=== PATIENT | male | born 1960 | race Caucasian/White ===

== ENCOUNTER → 2016-10-31 | Outpatient (CLI) | payer BC, OTHER ==
[2016-10-31 09:50] LABS: HEMATOCRIT 42.8 % (37.9-51.0); HEMOGLOBIN 14.6 g/dL (13.5-17.0); MEAN CORPUSCULAR HGB CONC 34.1 g/dL (32.0-36.0); MEAN CORPUSCULAR VOLUME 88 fl (80-97); RED BLOOD COUNT 4.87 10^6/uL (4.35-5.55); RED CELL DISTRIBUTION WIDTH 13.2 % (11.5-14.0); WHITE BLOOD COUNT 5.5 10^3/uL (4.0-10.5)
[2016-10-31 10:19] LABS: ALANINE AMINOTRANSFERASE 35 U/L (21-72); ALBUMIN 4.2 g/dL (3.5-5.0); ALKALINE PHOSPHATASE 96 U/L (38-126); ANION GAP 9 (5-19); ASPARTATE AMINO TRANSFERASE 23 U/L (17-59); BILIRUBIN,DIRECT 0.4 mg/dL (0.0-0.4); BILIRUBIN,TOTAL 0.8 mg/dL (0.2-1.3); BLOOD UREA NITROGEN 17 mg/dL (7-20); CALCIUM 9.5 mg/dL (8.4-10.2); CARBON DIOXIDE 28 mmol/L (22-30); CHLORIDE 103 mmol/L (98-107); CHOLESTEROL 220.82 mg/dL (0-200); CREATININE RESULT 1.05 mg/dL (0.52-1.25); Direct HDL 41 mg/dL (>40); GLUCOSE 104 mg/dL (75-110); POTASSIUM 4.6 mmol/L (3.6-5.0); SODIUM 140.4 mmol/L (137-145); TOTAL PROTEIN 7.3 g/dL (6.3-8.2); TRIGLYCERIDES 197 mg/dL (<150)
[2016-10-31 10:25] LABS: VLDL CHOLESTEROL 39.4 mg/dL (10-31)
[2016-10-31 10:30] LABS: DIRECT LDL 151 mg/dL (<100)
[2016-10-31 10:48] LABS: THYROID STIMULATING HORMONE 0.77 uIU/mL (0.47-4.68)
== END ==
LOC: OD 08:19
PROVIDERS: ATTEND Internal Medicine Cardiovascular Disease
DX: I49.9 Cardiac arrhythmia, unspecified (principal); R73.09 Other abnormal glucose; E78.4 Other hyperlipidemia; Z79.899 Other long term (current) drug therapy
CPT/HCPCS: 36415; 80048; 80061; 80076; 82977; 83036; 83735; 84439; 84443; 85027

== ENCOUNTER → 2016-12-14 | Outpatient (CLI) | payer OTHER ==
[2016-12-14 09:06] LABS: ALANINE AMINOTRANSFERASE 41 U/L (21-72); ALBUMIN 4.2 g/dL (3.5-5.0); ALKALINE PHOSPHATASE 99 U/L (38-126); ASPARTATE AMINO TRANSFERASE 29 U/L (17-59); BILIRUBIN,DIRECT 0.4 mg/dL (0.0-0.4); CHOLESTEROL 167.87 mg/dL (0-200); Direct HDL 41 mg/dL (>40); TOTAL PROTEIN 7.1 g/dL (6.3-8.2); TRIGLYCERIDES 126 mg/dL (<150)
[2016-12-14 09:17] LABS: DIRECT LDL 108 mg/dL (<100)
== END ==
LOC: OD 07:49
PROVIDERS: ATTEND Internal Medicine Cardiovascular Disease
DX: E78.00 Pure hypercholesterolemia, unspecified (principal); Z79.899 Other long term (current) drug therapy
CPT/HCPCS: 36415; 80061; 80076; 83735

== ENCOUNTER → 2017-01-22 | Outpatient (CLI) | payer OTHER ==
[2017-01-22 08:39] LABS: CHOLESTEROL 142.28 mg/dL (0-200); Direct HDL 42 mg/dL (>40); TRIGLYCERIDES 105 mg/dL (<150)
[2017-01-22 08:50] LABS: DIRECT LDL 81 mg/dL (<100)
== END ==
LOC: OD 07:43
PROVIDERS: ATTEND Internal Medicine Cardiovascular Disease
DX: E78.00 Pure hypercholesterolemia, unspecified (principal)
CPT/HCPCS: 36415; 80061

== ENCOUNTER → 2017-05-14 | Outpatient (CLI) | payer OTHER ==
[2017-05-14 08:37] LABS: ANION GAP 10 (5-19); BLOOD UREA NITROGEN 16 mg/dL (7-20); CALCIUM 9.2 mg/dL (8.4-10.2); CARBON DIOXIDE 27 mmol/L (22-30); CHLORIDE 104 mmol/L (98-107); CHOLESTEROL 150.34 mg/dL (0-200); GLUCOSE 105 mg/dL (75-110); POTASSIUM 4.5 mmol/L (3.6-5.0); SODIUM 141.3 mmol/L (137-145); TRIGLYCERIDES 154 mg/dL (<150)
[2017-05-14 08:48] LABS: DIRECT LDL 90 mg/dL (<100)
[2017-05-14 08:51] LABS: VLDL CHOLESTEROL 30.8 mg/dL (10-31)
== END ==
LOC: OD 07:55
PROVIDERS: ATTEND Internal Medicine Cardiovascular Disease
DX: E78.00 Pure hypercholesterolemia, unspecified (principal); I49.9 Cardiac arrhythmia, unspecified
CPT/HCPCS: 36415; 80048; 80061; 83735

== ENCOUNTER → 2017-07-11 | Outpatient (CLI) | payer OTHER ==
[2017-07-11 08:41] LABS: ALANINE AMINOTRANSFERASE 31 U/L (21-72); ALKALINE PHOSPHATASE 90 U/L (38-126); ASPARTATE AMINO TRANSFERASE 31 U/L (17-59); BILIRUBIN,DIRECT 0.2 mg/dL (0.0-0.4); BILIRUBIN,TOTAL 0.7 mg/dL (0.2-1.3); CHOLESTEROL 134.99 mg/dL (0-200); TOTAL PROTEIN 6.2 g/dL (6.3-8.2); TRIGLYCERIDES 108 mg/dL (<150)
[2017-07-11 08:52] LABS: DIRECT LDL 71 mg/dL (<100)
== END ==
LOC: OD 07:33
PROVIDERS: ATTEND Internal Medicine Cardiovascular Disease
DX: E78.2 Mixed hyperlipidemia (principal); I49.9 Cardiac arrhythmia, unspecified; Z79.899 Other long term (current) drug therapy
CPT/HCPCS: 36415; 80061; 80076; 83735

== ENCOUNTER → 2017-12-20 | Outpatient (CLI) | payer OTHER ==
[2017-12-20 08:40] LABS: ALANINE AMINOTRANSFERASE 32 U/L (21-72); ALKALINE PHOSPHATASE 85 U/L (38-126); ASPARTATE AMINO TRANSFERASE 24 U/L (17-59); BILIRUBIN,DIRECT 0.3 mg/dL (0.0-0.4); BILIRUBIN,TOTAL 0.9 mg/dL (0.2-1.3); CHOLESTEROL 132.75 mg/dL (0-200); TOTAL PROTEIN 6.8 g/dL (6.3-8.2); TRIGLYCERIDES 119 mg/dL (<150)
[2017-12-20 08:51] LABS: DIRECT LDL 70 mg/dL (<100)
== END ==
LOC: OD 07:43
PROVIDERS: ATTEND Internal Medicine Cardiovascular Disease
DX: E83.42 Hypomagnesemia (principal); E78.2 Mixed hyperlipidemia; Z79.899 Other long term (current) drug therapy
CPT/HCPCS: 36415; 80061; 80076; 83735

== ENCOUNTER → 2018-03-28 | Outpatient (CLI) | payer OTHER ==
[2018-03-28 09:09] LABS: ALANINE AMINOTRANSFERASE 35 U/L (21-72); ALKALINE PHOSPHATASE 86 U/L (38-126); ASPARTATE AMINO TRANSFERASE 23 U/L (17-59); BILIRUBIN,DIRECT 0.2 mg/dL (0.0-0.4); BILIRUBIN,TOTAL 0.8 mg/dL (0.2-1.3); CHOLESTEROL 130.06 mg/dL (0-200); TOTAL PROTEIN 6.6 g/dL (6.3-8.2); TRIGLYCERIDES 122 mg/dL (<150)
[2018-03-28 09:20] LABS: DIRECT LDL 84 mg/dL (<100)
== END ==
LOC: OD 07:38
PROVIDERS: ATTEND Internal Medicine Cardiovascular Disease
DX: E83.42 Hypomagnesemia (principal); E78.2 Mixed hyperlipidemia; Z79.899 Other long term (current) drug therapy
CPT/HCPCS: 36415; 80061; 80076; 83735

== ENCOUNTER 2018-05-10 07:55 | Emergency (ER) | payer OTHER ==
[2018-05-10] MEDS ORDERED: ASPIRIN 81 MG TABLET, CHEWABLE PO ONE (08:38)
--- NOTE | 2018-05-10 08:41 | EKG REPORT ---
SEVERITY:- ABNORMAL ECG - SINUS RHYTHM VENTRICULAR TRIGEMINY : Confirmed by: Wilma Guerrero MD 10-May-2018 08:40:44
--- NOTE | 2018-05-10 09:42 | RADIOLOGY REPORT (SQ) ---
EXAM DESCRIPTION: CHEST SINGLE VIEW COMPLETED DATE/TIME: 05/10/2018 9:21 am REASON FOR STUDY: sob COMPARISON: None. EXAM PARAMETERS: NUMBER OF VIEWS: One view. TECHNIQUE: Single frontal radiographic view of the chest acquired. RADIATION DOSE: NA LIMITATIONS: None. FINDINGS: LUNGS AND PLEURA: No opacities, masses or pneumothorax. No pleural effusion. MEDIASTINUM AND HILAR STRUCTURES: No masses. Contour normal. HEART AND VASCULAR STRUCTURES: Moderate cardiomegaly BONES: No acute findings. HARDWARE: None in the chest. OTHER: No other significant finding. IMPRESSION: Moderate cardiomegaly. No acute changes TECHNICAL DOCUMENTATION: JOB ID: [id number] [employer]- All Rights Reserved Reading location - IP/workstation name: [email or web address]
[2018-05-10 09:45] LABS: ABSOLUTE LYMPHOCYTES (AUTO) 1.1 10^3/uL (0.5-4.7); ABSOLUTE MONOCYTES (AUTO) 0.3 10^3/uL (0.1-1.4); ABSOLUTE NEUT (AUTO) 6.2 10^3/uL (1.7-8.2); BASOPHILS % (AUTO) 0.1 % (0-2); EOSINOPHILS % (AUTO) 0.1 % (0-6); HEMATOCRIT 43.2 % (37.9-51.0); HEMOGLOBIN 14.6 g/dL (13.5-17.0); LYMPHOCYTES % (AUTO) 14.7 % (13-45); MEAN CORPUSCULAR HEMOGLOBIN 29.4 pg (27.0-33.4); MEAN CORPUSCULAR HGB CONC 33.8 g/dL (32.0-36.0); MEAN CORPUSCULAR VOLUME 87 fl (80-97); MONOCYTES % (AUTO) 4.3 % (3-13); PLATELET COUNT 153 10^3/uL (150-450); RED BLOOD COUNT 4.96 10^6/uL (4.35-5.55); RED CELL DISTRIBUTION WIDTH 13.9 % (11.5-14.0); SEGMENTED NEUTROPHILS % (AUTO) 80.8 % (42-78); TOTAL CELLS COUNTED % (AUTO) 100 %; WHITE BLOOD COUNT 7.7 10^3/uL (4.0-10.5)
[2018-05-10 10:01] LABS: ALANINE AMINOTRANSFERASE 20 U/L (21-72); ALBUMIN 4.3 g/dL (3.5-5.0); ALKALINE PHOSPHATASE 99 U/L (38-126); ANION GAP 8 (5-19); ASPARTATE AMINO TRANSFERASE 27 U/L (17-59); BILIRUBIN,DIRECT 0.3 mg/dL (0.0-0.4); BILIRUBIN,TOTAL 0.9 mg/dL (0.2-1.3); BLOOD UREA NITROGEN 14 mg/dL (7-20); CALCIUM 9.2 mg/dL (8.4-10.2); CARBON DIOXIDE 30 mmol/L (22-30); CHLORIDE 104 mmol/L (98-107); CREATINE KINASE 63 U/L (55-170); GLUCOSE 110 mg/dL (75-110); LIPASE 49.3 U/L (23-300); POTASSIUM 4.1 mmol/L (3.6-5.0); SODIUM 141.7 mmol/L (137-145)
[2018-05-10 10:13] LABS: CREATINE KINASE MB 1.03 ng/mL (<4.55); TROPONIN I < 0.012 ng/mL
[2018-05-10 12:26] VITALS: BP 120/79
--- NOTE | 2018-05-10 12:44 | ER Document Report ---
ED General - General Chief Complaint: Chest Pain Stated Complaint: CHEST PAIN Time Seen by Provider: 05/10/18 08:38 TRAVEL OUTSIDE OF THE [place] IN LAST 30 DAYS: No - HPI Patient complains to provider of: Chest pain Notes: Patient coming in for evaluation of intermittent chest pain patient states substernal right-sided left-sided intermittent ongoing for greater than last 48 hours. Patient denies any exacerbating or relieving factors. Patient upon my evaluation is resting comfortably states he had a stress test years ago but was told may show a defect however no catheterization at that time. Patient did have a catheterization approximately 2014 and his otherwise state was normal. Patient does have a history of PVCs and currently is on metoprolol for the PVCs. Denies any recent travel shortness of breath nausea vomiting fever chills - Related Data Allergies/Adverse Reactions: Penicillins Allergy (Intermediate, Verified 05/10/18 07:55) Generalized rash Past Medical History - Social History Smoking Status: Never Smoker Chew tobacco use (# tins/day): No Frequency of alcohol use: None Drug Abuse: None Family History: Reviewed & Not Pertinent Patient has suicidal ideation: No Patient has homicidal ideation: No - Past Medical History Cardiac Medical History: Reports: Hx Hypercholesterolemia Denies: Hx Coronary Artery Disease, Hx Heart Attack, Hx Hypertension Pulmonary Medical History: Denies: Hx Asthma, Hx Bronchitis, Hx COPD, Hx Pneumonia Neurological Medical History: Denies: Hx Cerebrovascular Accident, Hx Seizures Renal/ Medical History: Denies: Hx Peritoneal Dialysis GI Medical History: Reports: Hx Gastroesophageal Reflux Disease Musculoskeletal Medical History: Denies Hx Arthritis - Immunizations Hx Diphtheria, Pertussis, Tetanus Vaccination: Yes Review of Systems - Review of Systems Constitutional: No symptoms reported EENT: No symptoms reported Cardiovascular: Chest pain Respiratory: No symptoms reported Gastrointestinal: No symptoms reported Genitourinary: No symptoms reported Male Genitourinary: No symptoms reported Musculoskeletal: No symptoms reported Skin: No symptoms reported Hematologic/Lymphatic: No symptoms reported Neurological/Psychological: No symptoms reported -: Yes All other systems reviewed and negative Physical Exam - Vital signs Vitals: Temp Pulse Resp BP Pulse Ox 98.7 F 83 16 145/106 H 95 05/10/18 08:00 05/10/18 08:00 05/10/18 08:00 05/10/18 08:00 05/10/18 08:00 Interpretation: Normal - General General appearance: Appears well, Alert - HEENT Head: Normocephalic, Atraumatic Eyes: Normal Pupils: PERRL - Respiratory Respiratory status: No respiratory distress Chest status: Nontender Breath sounds: Normal Chest palpation: Normal - Cardiovascular Rhythm: Regular Heart sounds: Normal auscultation Murmur: No - Abdominal Inspection: Normal Distension: No distension Bowel sounds: Normal Tenderness: Nontender Organomegaly: No organomegaly - Back Back: Normal, Nontender - Extremities General upper extremity: Normal inspection, Nontender, Normal color, Normal ROM, Normal temperature General lower extremity: Normal inspection, Nontender, Normal color, Normal ROM, Normal temperature, Normal weight bearing. No: Marco's sign - Neurological Neuro grossly intact: Yes Cognition: Normal Orientation: AAOx4 [place] Coma Scale Eye Opening: Spontaneous [place] Coma Scale Verbal: Oriented [place] Coma Scale Motor: Obeys Commands [place] Coma Scale Total: 15 Speech: Normal Motor strength normal: LUE, RUE, LLE, RLE Sensory: Normal - Psychological Associated symptoms: Normal affect, Normal mood - Skin Skin Temperature: Warm Skin Moisture: Dry Skin Color: Normal Course - Re-evaluation Re-evalutation: 05/10/18 15:09 Patient was sent into the ER by his residential life director Dr. Campos. EKG troponin otherwise negative for any acute ischemia. Dr. Campos requesting the patient be discharged home with sublingual nitroglycerin to take whenever he is chest pain and to keep a record of the events surrounding the beginning of the chest pain and what happens after he takes the sublingual nitro. This was relayed to the patient. States understanding otherwise patient will be discharged home follow- up primary care physician. - Vital Signs Vital signs: Temp Pulse Resp BP Pulse Ox 98.7 F 83 19 120/79 96 05/10/18 08:00 05/10/18 08:00 05/10/18 12:01 05/10/18 12:01 05/10/18 12:01 - Laboratory Result Diagrams: 05/10/18 09:00 05/10/18 09:00 Laboratory results interpreted by me: 05/10/18 05/10/18 09:00 09:00 Seg Neutrophils % 80.8 H ALT 20 L Discharge - Discharge Clinical Impression: Atypical chest pain Condition: Good Disposition: HOME, SELF-CARE Instructions: Chest Wall Pain ([facility]), Chest Pain of Unclear Cause ([facility]), Nitrates ([facility]) Additional Instructions: Your EKG laboratory studies not show any signs of a heart attack or heart damage no pneumonia no signs of infection. I discussed your case with your doctor Dr. Campos who requests that he start taking nitro at home for your pain and to keep a record of the events ongoing around you with the chest pain occurs in the results of taking the sublingual nitro. Please make sure you are sitting down when he take the sublingual nitro. Follow-up with his office on Saturday (call them) Return to the ER immediately if there is a change in your symptoms are concerning your symptoms. Prescriptions: Nitroglycerin [Nitrostat 0.4 mg (1/150 Gr) Tabs 25/Bottle] 1 tab SL Q5MP PRN #25 tab.subl PRN Reason:
== END 2018-05-10 13:01 | disposition home or self-care (01) ==
LOC: ER 07:55
DX: R07.89 Other chest pain (principal); E78.00 Pure hypercholesterolemia, unspecified; Z88.0 Allergy status to penicillin
CPT/HCPCS: 36415; 71045; 80053; 82550; 82553; 83690; 83735; 84484; 85025; 93005; 93010; 99285

== ENCOUNTER 2018-05-24 18:05 | Emergency (ER) | payer OTHER ==
--- NOTE | 2018-05-24 18:18 | ER Document Report ---
ED Medical Screen (RME) - General Chief Complaint: Urinary Problem Stated Complaint: URINARY ISSUES Time Seen by Provider: 05/24/18 18:17 Primary Care Provider: ZACH BERNSTEIN MD [Primary Care Provider] - Follow up as needed Mode of Arrival: Ambulatory Information source: Patient TRAVEL OUTSIDE OF THE [place] IN LAST 30 DAYS: No - HPI Patient complains to provider of: dysuria; retention Onset: This morning - pt. with c/o dysuria since earliere today and decreasing ability to make urine - Related Data Allergies/Adverse Reactions: Penicillins Allergy (Intermediate, Verified 05/24/18 18:08) Generalized rash Past Medical History - Past Medical History Cardiac Medical History: Reports: Hx Hypercholesterolemia Denies: Hx Coronary Artery Disease, Hx Heart Attack, Hx Hypertension Pulmonary Medical History: Denies: Hx Asthma, Hx Bronchitis, Hx COPD, Hx Pneumonia Neurological Medical History: Denies: Hx Cerebrovascular Accident, Hx Seizures Renal/ Medical History: Denies: Hx Peritoneal Dialysis GI Medical History: Reports: Hx Gastroesophageal Reflux Disease Musculoskeltal Medical History: Denies Hx Arthritis - Immunizations Hx Diphtheria, Pertussis, Tetanus Vaccination: Yes Physical Exam - Vital signs Vitals: Temp Pulse Resp BP Pulse Ox 99.0 F 41 L 18 152/83 H 99 05/24/18 18:10 05/24/18 18:10 05/24/18 18:10 05/24/18 18:10 05/24/18 18:10 Course - Vital Signs Vital signs: Temp Pulse Resp BP Pulse Ox 99.0 F 41 L 18 152/83 H 99 05/24/18 18:10 05/24/18 18:10 05/24/18 18:10 05/24/18 18:10 05/24/18 18:10 Doctor's Discharge - Discharge Referrals: ZACH BERNSTEIN MD [Primary Care Provider] - Follow up as needed
[2018-05-24 18:49] LABS: APPEARANCE,URINE SLIGHTLY-CLOUDY; BILIRUBIN,URINE NEGATIVE (NEGATIVE); COLOR,URINE YELLOW; GLUCOSE, URINE NEGATIVE (NEGATIVE); KETONES,URINE NEGATIVE (NEGATIVE); LEUKOCYTE ESTERASE,URINE MODERATE (NEGATIVE); NITRITE,URINE NEGATIVE (NEGATIVE); PROTEIN,URINE NEGATIVE (NEGATIVE); URINE SPECIFIC GRAVITY 1.025; UROBILINOGEN,URINE NEGATIVE mg/dL (<2.0)
[2018-05-24] MEDS ORDERED: CEPHALEXIN 500 MG CAPSULE PO ONE (19:57)
--- NOTE | 2018-05-24 19:59 | ER Document Report ---
ED General - General Chief Complaint: Urinary Problem Stated Complaint: URINARY ISSUES Time Seen by Provider: 05/24/18 18:17 Primary Care Provider: ZACH BERNSTEIN MD [Primary Care Provider] - Follow up in 3-5 days Mode of Arrival: Ambulatory Notes: Patient is a 57-year-old male with a past medical history of frequent PVCs, hypertension, presents with 2 days of dysuria, urinary hesitancy and feels like he is unable to completely empty his bladder. He notes a mild, throbbing, constant discomfort to the suprapubic abdomen. Symptoms started gradually, have gotten worse since onset. Nothing seems to improve or worsen his symptoms. Reports a history of similar symptoms in October 2017 when he was in [place]. States he was treated with antibiotics and within 24 hours of initiation of antibiotic treatment he felt much better. He has never seen a urologist regarding today's concerns. Denies fever or constitutional symptoms. TRAVEL OUTSIDE OF THE [place] IN LAST 30 DAYS: No - Related Data Allergies/Adverse Reactions: Penicillins Allergy (Intermediate, Verified 05/24/18 18:08) Generalized rash Past Medical History - General Information source: Patient - Social History Smoking Status: Never Smoker Chew tobacco use (# tins/day): No Frequency of alcohol use: None Drug Abuse: None Lives with: Family Family History: Reviewed & Not Pertinent Patient has suicidal ideation: No Patient has homicidal ideation: No - Past Medical History Cardiac Medical History: Reports: Hx Hypercholesterolemia Denies: Hx Coronary Artery Disease, Hx Heart Attack, Hx Hypertension Pulmonary Medical History: Denies: Hx Asthma, Hx Bronchitis, Hx COPD, Hx Pneumonia Neurological Medical History: Denies: Hx Cerebrovascular Accident, Hx Seizures Renal/ Medical History: Denies: Hx Peritoneal Dialysis GI Medical History: Reports: Hx Gastroesophageal Reflux Disease Musculoskeletal Medical History: Denies Hx Arthritis - Immunizations Hx Diphtheria, Pertussis, Tetanus Vaccination: Yes Review of Systems - Review of Systems Notes: Constitutional: Negative for fever. HENT: Negative for sore throat. Eyes: Negative for visual changes. Cardiovascular: Negative for chest pain. Respiratory: Negative for shortness of breath. Gastrointestinal: Positive for lower abdominal pain Genitourinary: Positive for dysuria, urinary frequency and hesitancy. Musculoskeletal: Negative for back pain. Skin: Negative for rash. Neurological: Negative for headaches, weakness or numbness. 10 point ROS negative except as marked above and in HPI. Physical Exam - Vital signs Vitals: Temp Pulse Resp BP Pulse Ox 99.0 F 41 L 18 152/83 H 99 05/24/18 18:10 05/24/18 18:10 05/24/18 18:10 05/24/18 18:10 05/24/18 18:10 Interpretation: Bradycardic - Patient recently had his metoprolol increased to 100 mg daily Notes: PHYSICAL EXAMINATION: GENERAL: Well-appearing, well-nourished and in no acute distress. HEAD: Atraumatic, normocephalic. EYES: Pupils equal round and reactive to light, extraocular movements intact, sclera anicteric, conjunctiva are normal. ENT: nares patent, oropharynx clear without exudates. Moist mucous membranes. NECK: Normal range of motion, supple without lymphadenopathy LUNGS: Breath sounds clear to auscultation bilaterally and equal. No wheezes rales or rhonchi. HEART: Regular rate and rhythm without murmurs ABDOMEN: Soft, nontender, normoactive bowel sounds. No guarding, no rebound. No masses appreciated. Bedside ultrasound shows nondistended bladder, no evidence of hydronephrosis on either kidney. EXTREMITIES: Normal range of motion, no pitting or edema. No cyanosis. NEUROLOGICAL: No focal neurological deficits. Moves all extremities spontaneously and on command. PSYCH: Normal mood, normal affect. SKIN: Warm, Dry, normal turgor, no rashes or lesions noted. Course - Re-evaluation Re-evalutation: 05/24/18 19:58 Patient presents with symptoms consistent with an acute cystitis versus prostatitis. Vitals wnl. No history of fever, flank pain, or constitution symptoms to suggest ascending infection at this time. Patient is well in appearance, tolerating oral intake without difficulty. No focal abdominal tenderness to suggest acute appendicitis, biliary pathology, acute pancreatitis. Bladder ultrasound does not show any evidence of urinary retention or hydronephrosis on renal ultrasound. Patient will be started on antibiotics at this time. A culture has been sent. I have advised urology follow-up given that this is the second time the patient has been found to have a urinary tract infection. At this time will discharge with return precautions and follow-up recommendations. Verbal discharge instructions given a the bedside and opportunity for questions given. Medication warnings reviewed. Patient is in agreement with this plan and has verbalized understanding of return precautions and the need for primary care follow-up in the next 24-72 hours. - Vital Signs Vital signs: Temp Pulse Resp BP Pulse Ox 97.8 F 40 L 16 126/78 H 99 05/24/18 19:47 05/24/18 19:47 05/24/18 19:47 05/24/18 19:47 05/24/18 19:47 - Laboratory Laboratory results interpreted by me: 05/24/18 18:29 Urine Blood SMALL H Ur Leukocyte Esterase MODERATE H Discharge - Discharge Clinical Impression: Urinary hesitancy Urinary tract infection Qualifiers: Urinary tract infection type: acute cystitis Hematuria presence: without hematuria Qualified Code(s): N30.00 - Acute cystitis without hematuria Condition: Good Disposition: HOME, SELF-CARE Additional Instructions: Your urine shows findings consistent with a urinary tract infection. As we discussed this alternatively could be a prostate infection. Please take all the antibiotics as directed even if your symptoms have improved. Please follow-up with your primary care physician and consider a urology referral for further assessment of why you have gotten recurrent infections. Return to emergency room if you develop fever >101F, persistent vomiting, become lethargic, have severe pain in your sides, or any other symptoms that are concerning to you. Prescriptions: Cephalexin Monohydrate [Keflex 500 mg Capsule] 500 mg PO Q6H 7 Days capsule Referrals: ZACH BERNSTEIN MD [Primary Care Provider] - Follow up in 3-5 days
[2018-05-24 20:06] VITALS: BP 126/78
== END 2018-05-24 20:11 | disposition home or self-care (01) ==
LOC: ER 18:05
DX: N30.00 Acute cystitis without hematuria (principal); R00.1 Bradycardia, unspecified; I10 Essential (primary) hypertension; Z79.899 Other long term (current) drug therapy; Z88.0 Allergy status to penicillin
CPT/HCPCS: 36415; 81001; 87086; 99283

== ENCOUNTER → 2018-05-28 | Outpatient (CLI) | payer OTHER ==
[2018-05-28 13:14] LABS: HEMATOCRIT 42.9 % (37.9-51.0); HEMOGLOBIN 14.5 g/dL (13.5-17.0); MEAN CORPUSCULAR HEMOGLOBIN 29.4 pg (27.0-33.4); MEAN CORPUSCULAR HGB CONC 33.7 g/dL (32.0-36.0); MEAN CORPUSCULAR VOLUME 87 fl (80-97); PLATELET COUNT 147 10^3/uL (150-450); RED BLOOD COUNT 4.92 10^6/uL (4.35-5.55); RED CELL DISTRIBUTION WIDTH 13.8 % (11.5-14.0); WHITE BLOOD COUNT 7.1 10^3/uL (4.0-10.5)
[2018-05-28 13:17] LABS: INTERNATIONAL RATION (INR) 0.95; PARTIAL THROMBOPLASTIN TIME 28.3 SEC (23.5-35.8); PROTHROMBIN TIME 13.1 SEC (11.4-15.4)
[2018-05-28 13:47] LABS: ANION GAP 12 (5-19); BLOOD UREA NITROGEN 13 mg/dL (7-20); CALCIUM 9.9 mg/dL (8.4-10.2); CARBON DIOXIDE 29 mmol/L (22-30); CHLORIDE 100 mmol/L (98-107); GLUCOSE 96 mg/dL (75-110); POTASSIUM 4.4 mmol/L (3.6-5.0); SODIUM 141.1 mmol/L (137-145)
== END ==
LOC: LAB 12:54
PROVIDERS: ATTEND Internal Medicine Cardiovascular Disease
DX: Z01.810 Encounter for preprocedural cardiovascular examination (principal); R07.89 Other chest pain; Z79.01 Long term (current) use of anticoagulants
CPT/HCPCS: 36415; 80048; 85027; 85610; 85730

== ENCOUNTER → 2018-08-26 | Outpatient (CLI) | payer OTHER ==
[2018-08-26 11:03] LABS: ALANINE AMINOTRANSFERASE 35 U/L (21-72); ALBUMIN 4.2 g/dL (3.5-5.0); ALKALINE PHOSPHATASE 98 U/L (38-126); ASPARTATE AMINO TRANSFERASE 27 U/L (17-59); BILIRUBIN,DIRECT 0.2 mg/dL (0.0-0.4); BILIRUBIN,TOTAL 0.8 mg/dL (0.2-1.3); CHOLESTEROL 128.14 mg/dL (0-200); TOTAL PROTEIN 6.5 g/dL (6.3-8.2); TRIGLYCERIDES 94 mg/dL (<150)
[2018-08-26 11:14] LABS: DIRECT LDL 74 mg/dL (<100)
== END ==
LOC: OD 10:09
PROVIDERS: ATTEND Internal Medicine Cardiovascular Disease
DX: E78.2 Mixed hyperlipidemia (principal); Z79.899 Other long term (current) drug therapy
CPT/HCPCS: 36415; 80061; 80076

== ENCOUNTER → 2018-12-02 | Outpatient (CLI) | payer OTHER ==
[2018-12-02 10:13] LABS: ALBUMIN 4.1 g/dL (3.5-5.0); ALKALINE PHOSPHATASE 97 U/L (38-126); ANION GAP 8 (5-19); ASPARTATE AMINO TRANSFERASE 27 U/L (17-59); BILIRUBIN,DIRECT 0.1 mg/dL (0.0-0.4); BILIRUBIN,TOTAL 0.9 mg/dL (0.2-1.3); BLOOD UREA NITROGEN 15 mg/dL (7-20); CALCIUM 9.6 mg/dL (8.4-10.2); CARBON DIOXIDE 31 mmol/L (22-30); CHLORIDE 101 mmol/L (98-107); CHOLESTEROL 109.21 mg/dL (0-200); GLUCOSE 108 mg/dL (75-110); POTASSIUM 4.7 mmol/L (3.6-5.0); TOTAL PROTEIN 6.8 g/dL (6.3-8.2); TRIGLYCERIDES 92 mg/dL (<150)
[2018-12-02 10:23] LABS: DIRECT LDL 66 mg/dL (<100)
== END ==
LOC: OD 08:14
PROVIDERS: ATTEND Physician Assistant
DX: E83.42 Hypomagnesemia (principal); E78.2 Mixed hyperlipidemia; R94.5 Abnormal results of liver function studies; Z79.899 Other long term (current) drug therapy
CPT/HCPCS: 36415; 80048; 80061; 80076; 83735

== ENCOUNTER → 2019-03-04 | Outpatient (CLI) | payer OTHER ==
[2019-03-04 08:30] LABS: ALBUMIN 4.3 g/dL (3.5-5.0); ALKALINE PHOSPHATASE 104 U/L (38-126); ANION GAP 8 (5-19); ASPARTATE AMINO TRANSFERASE 28 U/L (17-59); BILIRUBIN,DIRECT 0.1 mg/dL (0.0-0.4); BILIRUBIN,TOTAL 0.8 mg/dL (0.2-1.3); BLOOD UREA NITROGEN 16 mg/dL (7-20); CALCIUM 9.5 mg/dL (8.4-10.2); CARBON DIOXIDE 31 mmol/L (22-30); CHLORIDE 102 mmol/L (98-107); CHOLESTEROL 130.75 mg/dL (0-200); GLUCOSE 103 mg/dL (75-110); POTASSIUM 4.3 mmol/L (3.6-5.0); TOTAL PROTEIN 7.4 g/dL (6.3-8.2); TRIGLYCERIDES 96 mg/dL (<150)
[2019-03-04 08:41] LABS: DIRECT LDL 71 mg/dL (<100)
== END ==
LOC: OD 07:29
PROVIDERS: ATTEND Physician Assistant
DX: E78.2 Mixed hyperlipidemia (principal); E83.42 Hypomagnesemia; R94.5 Abnormal results of liver function studies; I49.9 Cardiac arrhythmia, unspecified; Z79.899 Other long term (current) drug therapy
CPT/HCPCS: 36415; 80048; 80061; 80076; 83735

== ENCOUNTER → 2019-09-30 | Outpatient (CLI) | payer OTHER ==
[2019-09-30 09:21] LABS: ALKALINE PHOSPHATASE 93 U/L (38-126); ASPARTATE AMINO TRANSFERASE 26 U/L (17-59); BILIRUBIN,TOTAL 0.7 mg/dL (0.2-1.3); CHOLESTEROL 119.35 mg/dL (0-200); TOTAL PROTEIN 6.7 g/dL (6.3-8.2); TRIGLYCERIDES 141 mg/dL (<150)
[2019-09-30 09:34] LABS: DIRECT LDL 68 mg/dL (<100)
== END ==
LOC: OD 08:29
PROVIDERS: ATTEND Internal Medicine Cardiovascular Disease
DX: E78.2 Mixed hyperlipidemia (principal); Z79.899 Other long term (current) drug therapy
CPT/HCPCS: 36415; 80061; 80076

== ENCOUNTER → 2020-01-12 | Outpatient (CLI) | payer OTHER ==
[2020-01-12 09:40] LABS: ANION GAP 8 (5-19); BLOOD UREA NITROGEN 17 mg/dL (7-20); CALCIUM 9.8 mg/dL (8.4-10.2); CARBON DIOXIDE 30 mmol/L (22-30); CHLORIDE 101 mmol/L (98-107); GLUCOSE 106 mg/dL (75-110); POTASSIUM 4.6 mmol/L (3.6-5.0)
== END ==
LOC: OD 08:01
PROVIDERS: ATTEND Internal Medicine Cardiovascular Disease
DX: E66.09 Other obesity due to excess calories (principal); R00.2 Palpitations; Z79.899 Other long term (current) drug therapy
CPT/HCPCS: 36415; 80048; 83735; 84443